=== PATIENT | female | born 1985 | race African-American/Black ===

== ENCOUNTER 2016-12-04 08:50 | Inpatient (IN) | payer OTHER, MEDICAID ==
[~2016-12-04] VITALS: Ht 160 cm; Wt 129.0 kg
[2016-12-04] VITALS (7 sets, daily range): BP systolic 102–139; BP diastolic 58–81; PULSE 95–104; RESP 18–20; TEMP 97.9–98.2; O2SAT 96–100
[~2016-12-04 08:50] MED LIST: AMLO5 PO; HYDR-3533 PO; VENTAER INH; ZITH250T PO; ZYRT10TA12 PO
[2016-12-04] MEDS ORDERED: SODIUM CHLOR 0.9% 1000 ML INJ 1,000 ML IV ONE ×2 (09:45→11:15)
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
[2016-12-04 09:54] LABS: AUTOMATED NEUTROPHIL # 12.6 TH/MM3 (1.8-7.7); BASOPHIL # 0.1 TH/MM3 (0-0.2); BASOPHIL % 0.3 % (0.0-2.0); EOSINOPHIL # 0.1 TH/MM3 (0-0.4); EOSINOPHIL % 0.7 % (0.0-4.0); HEMATOCRIT 37.7 % (35.0-46.0); LYMPH % 27.3 % (9.0-44.0); LYMPHOCYTE # 5.2 TH/MM3 (1.0-4.8); MEAN CELL VOLUME 81.3 FL (80.0-100.0); MEAN CORPUSCULAR HEMOGLOBIN 26.7 PG (27.0-34.0); MEAN CORPUSCULAR HGB CONC 32.8 % (32.0-36.0); MONO % 5.2 % (0.0-8.0); NEUT % 66.5 % (16.0-70.0); PLATELET COUNT 280 TH/MM3 (150-450); RED BLOOD COUNT 4.63 MIL/MM3 (4.00-5.30); RED CELL DISTRIBUTION WIDTH 15.5 % (11.6-17.2); WHITE BLOOD COUNT 18.9 TH/MM3 (4.0-11.0)
[2016-12-04 09:59] LABS: HEMO FLAGS AUTO DIFF
[2016-12-04 10:03] LABS: APTT (PATIENT) 21.7 SEC (24.3-30.1); PROTHROMBIN TIME - PATIENT 10.5 SEC (9.8-11.6)
[2016-12-04] MEDS ORDERED: IOHEXOL 350 MG/ML 10 ML VIAL (for RAD DIAG) IV ONE (10:14)
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
[2016-12-04 10:17] LABS: BICARBONATE 25.5 MEQ/L (21.0-32.0)
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
[2016-12-04 10:26] LABS: POTASSIUM 2.9 MEQ/L (3.5-5.1)
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
[2016-12-04 11:09] LABS: BANDS 5 % (0-6); BASOPHILS 1 % (0-2); EOSINOPHILS 1 % (0-4); NEUTROPHIL # MANUAL DIFF 12.3 TH/MM3 (1.8-7.7); POLYS (SEG NEUTROPHILS) 60 % (16-70); SCAN/DIFF FINAL DIFF MANUAL; WBC DIFF SAMPLE 100
[2016-12-04 11:10] LABS: PLATELET ESTIMATE SMEAR NORMAL (NORMAL); PLATELET MORPHOLOGY NORMAL (NORMAL)
[2016-12-04] MEDS ORDERED: MORPHINE SULFATE 4 MG/ML INJ IV PUSH ONE (11:15)
[2016-12-04] MEDS ORDERED: ONDANSETRON HCL 4 MG/2 ML VIAL IV ONE (11:15)
[2016-12-04] MEDS: POTASSIUM CHLOR 20 MEQ PREMIX 100 ML IV SCH ×2 (12:59→15:48)
[2016-12-04] MEDS ORDERED: ONDANSETRON HCL 4 MG/2 ML VIAL IV PRN ×2 (13:30→13:45)
[2016-12-04] MEDS ORDERED: SODIUM CHLORIDE 0.9% FLUSH 5 ML FLUSH IVF PRN ×2 (13:30→13:45)
[2016-12-04] MEDS ORDERED: ACETAMINOPHEN 325 MG TAB PO PRN (13:30)
[2016-12-04] MEDS ORDERED: ENALAPRILAT 1.25 MG/ML VIAL IV PRN (13:30)
[2016-12-04] MEDS: SODIUM CHLOR 0.9% 1000 ML INJ 1,000 ML IV SCH ×4 (13:39→21:44)
[2016-12-04] MEDS ORDERED: NALOXONE HCL 0.4 MG/ML AMP IV PRN (13:45)
[2016-12-04] MEDS ORDERED: Post-op Orders (for Pharmacy) MISC XX ONE (13:45)
[2016-12-04] MEDS: PANTOPRAZOLE SOD 40 MG DELAYED RELEASE TAB PO SCH (14:00)
[2016-12-04] MEDS ORDERED: PANTOPRAZOLE SODIUM 40 MG VIAL IVP SCH (14:00)
[2016-12-04] MEDS: MORPHINE SULFATE 4 MG/ML INJ IV PRN ×2 (17:57→22:13)
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
[2016-12-04] MEDS ORDERED: DOCUSATE SODIUM 100 MG CAP PO SCH (21:00)
[2016-12-04] MEDS: MAGNESIUM HYDROXIDE SUSP 30 ML CUP PO SCH (21:44)
[2016-12-04] MEDS: SODIUM CHLORIDE 0.9% FLUSH 5 ML FLUSH IVF SCH (21:44)
[2016-12-04] MEDS: DOCUSATE SODIUM 100 MG CAP PO SCH (21:44)
[2016-12-05 00:05] VITALS: BP 110/79; PULSE 106; RESP 18; TEMP 98.5; O2SAT 99
[2016-12-05] MEDS ORDERED: INSULIN HUMAN REGULAR 1,000 UNITS/10 ML VIAL SQ PRN (00:15)
[2016-12-05 04:06] VITALS: BP 102/73; PULSE 95; RESP 19; TEMP 98.1; O2SAT 99
--- NOTE | 2016-12-05 07:11 | RADRPT ---
EXAM DATE/TIME: 12/05/2016 06:32 [facility] COMPARISON: CT THORAX W CONTRAST, December 04, 2016, 10:14. CHEST SINGLE AP, December 04, 2016, 10:11. INDICATIONS : Hemopneumothorax. MEDICAL HISTORY : Gastroesophageal reflux disease. Hypertension SURGICAL HISTORY : Tubal ligation. ENCOUNTER: Initial ACUITY: 2 days PAIN SCORE: 2/10 LOCATION: Bilateral chest FINDINGS: A single view of the chest demonstrates a mild infiltrate in the right lower lung. There is elevation of the right hemidiaphragm which is stable. The left lung is grossly clear. The heart size is stable . There are no pleural effusions. The bony structures are stable.. CONCLUSION: Mild right lower lung infiltrate. Trevin Michaud MD on December 05, 2016 at 7:07 Board Certified Radiologist. This report was verified electronically.
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
[2016-12-05] MEDS ORDERED: HYDR-3288 PO (07:18)
[2016-12-05] MEDS ORDERED: PLATMIS3 (07:19)
[2016-12-05] MEDS ORDERED: VANCOMYCIN HCL 1000 MG VIAL ONE (07:21)
[2016-12-05] MEDS ORDERED: GENTAMICIN SULFATE 80 MG/2 ML VIAL ONE (07:21)
[2016-12-05] MEDS ORDERED: BUPIVACAINE/EPINEPHRINE 0.25% PF 30 ML VIAL ONE (07:21)
[2016-12-05] MEDS ORDERED: SODIUM CHLOR 0.9% 250 ML INJ 250 ML ONE (07:22)
[2016-12-05] MEDS: SODIUM CHLORIDE 0.9% FLUSH 5 ML FLUSH IVF SCH ×2 (07:39→19:46)
[2016-12-05] MEDS: MORPHINE SULFATE 4 MG/ML INJ IV PRN (07:39)
[2016-12-05] MEDS: DOCUSATE SODIUM 100 MG CAP PO SCH ×2 (07:44→19:46)
[2016-12-05] MEDS: amLODIPine BESYLATE 5 MG TAB PO SCH (07:44)
[2016-12-05 08:00] VITALS: BP 124/72; PULSE 96; RESP 18; TEMP 97.1; O2SAT 98
[2016-12-05 08:10] LABS: PROTHROMBIN TIME - PATIENT 10.8 SEC (9.8-11.6)
[2016-12-05 08:19] LABS: AUTOMATED NEUTROPHIL # 6.3 TH/MM3 (1.8-7.7); BASOPHIL % 0.4 % (0.0-2.0); EOSINOPHIL # 0.1 TH/MM3 (0-0.4); EOSINOPHIL % 0.5 % (0.0-4.0); HEMATOCRIT 31.1 % (35.0-46.0); HEMO FLAGS DIFF FINAL; LYMPH % 25.8 % (9.0-44.0); LYMPHOCYTE # 2.6 TH/MM3 (1.0-4.8); MEAN CELL VOLUME 81.8 FL (80.0-100.0); MEAN CORPUSCULAR HEMOGLOBIN 26.7 PG (27.0-34.0); MEAN CORPUSCULAR HGB CONC 32.6 % (32.0-36.0); MONO % 10.6 % (0.0-8.0); NEUT % 62.7 % (16.0-70.0); PLATELET COUNT 195 TH/MM3 (150-450); RED BLOOD COUNT 3.81 MIL/MM3 (4.00-5.30); RED CELL DISTRIBUTION WIDTH 15.4 % (11.6-17.2); WHITE BLOOD COUNT 10.1 TH/MM3 (4.0-11.0)
[2016-12-05 08:21] LABS: ALT (GPT) 75 U/L (10-53); ANION GAP 9 MEQ/L (5-15); AST (GOT) 94 U/L (15-37); BICARBONATE 23.7 MEQ/L (21.0-32.0); BLOOD UREA NITROGEN 6 MG/DL (7-18); CHLORIDE 108 MEQ/L (98-107); GLOMERULAR FILTRATION RATE 161 ML/MIN (>89); POTASSIUM 3.6 MEQ/L (3.5-5.1); SODIUM (NA) 141 MEQ/L (136-145)
[2016-12-05 08:24] LABS: ALKALINE PHOSPHATASE 48 U/L (45-117); TOTAL BILIRUBIN ADULT 0.4 MG/DL (0.2-1.0)
[2016-12-05] MEDS ORDERED: MIDAZOLAM HCL 2 MG/2 ML VIAL ONE (09:06)
[2016-12-05] MEDS ORDERED: ACETAMINOPHEN 1000 MG/100 ML VIAL IV ONE (09:06)
[2016-12-05] MEDS ORDERED: fentaNYL CITRATE 250 MCG/5 ML AMP ONE (09:06)
[2016-12-05] MEDS ORDERED: LACTATED RINGER'S 1000 ML IV SCH (09:30)
[2016-12-05] MEDS ORDERED: SODIUM CHLORID 0.9% 500 ML IV SCH (09:30)
[2016-12-05] MEDS ORDERED: ceFAZolin INJ 1,000 MG VIAL ONE (09:59)
[2016-12-05] MEDS ORDERED: INFLUENZA VIRUS VACCINE (QUADRIVALENT) 0.5 ML SYR IM ONE (10:00)
--- NOTE | 2016-12-05 10:15 | PD.OP ---
cc: Lambert Tay MD Operative Report Date of Surgery: Dec 05, 2016 Preoperative Diagnosis: Displaced right distal radius fracture, right pubic rami fractures Postoperative Diagnosis: Procedure: Open reduction internal fixation right distal radius Anesthesia: Gen. Surgeon: Lambert Tay Sports Doctor(s): JF Avelar PA-C The surgical procedure was assisted by my physician administrative assistant. My P.A. presence was necessary throughout this case for the manipulation and positioning of the surgical extremity. My P.A. was assisting me throughout the duration of this procedure. The skill set of a physician administrative assistant was medically necessary to complete this procedure. During the surgical case the retail service technician was working at the back table and the physician administrative assistant was directly assisting me. Operation and Findings: Patient was seen and evaluated preoperatively and found to have a displaced distal radius fracture. Informed consent was obtained after detailed discussion of risk and benefits including bleeding, infection, injury to arteries, nerves, and blood vessels, weakness and numbness of hand, and tendon rupture. Informed consent was obtained. Patient received IV antibiotics prior to incision. Timeout procedure was performed. Operative extremity was prepped with alcohol followed by Hibiclens and draped usual sterile fashion. A standard volar approach to the distal radius was utilized. A 3 inch incision was made over the FCR tendon. Tendon sheath was opened. Pronator quadratus was elevated up. The fracture site was now visualized. The fracture did have intra-articular extension. Traction was applied. The articular surface was reduced. Fracture fragments were manipulated to achieve excellent reduction. K wires were used to hold provisional fixation. Fluoroscopy confirmed appropriate alignment of fracture. A Synthes 2 column variable angle distal radius plate was selected. Plate was provisionally fixed to bone with K wires. 2.7 and 2.4 cortical screws were used to compress plate to bone. Fluoroscopy confirmed appropriate alignment of fracture with well-placed hardware. Multiple 2.4 locking screws were now placed distally. Screws were predrilled and measured for appropriate length. 2 additional screws were placed into the shaft. K wires were removed. Final fluoroscopy revealed excellent of fracture with well-placed hardware. The wound was thoroughly irrigated with sterile saline. Subcutaneous tissue was closed with 3-0 Vicryl and skin was closed with 3-0 nylon. Sterile dressings were applied with Xeroform, 4 x 4, soft roll , and a well padded volar splint. Patient was awakened and transferred to recovery room in stable condition Lambert Tay MD Dec 05, 2016 10:15
[2016-12-05] MEDS ORDERED: PROPOFOL 200 MG/20 ML AMP IV ONE (10:25)
[2016-12-05] MEDS ORDERED: NEOSTIGMINE 3 MG/3 ML SYR IV ONE (10:25)
[2016-12-05] MEDS ORDERED: ONDANSETRON HCL 4 MG/2 ML VIAL IV PUSH ONE (10:25)
[2016-12-05] MEDS ORDERED: LACTATED RINGER'S 1000 ML INJ 1,000 ML IV ONE (10:25)
[2016-12-05] MEDS ORDERED: *morphine SULFATE 8 MG/ML PERIprocedure ONLY ONE ×2 (10:49→11:37)
[2016-12-05 12:00] VITALS: BP 117/73; PULSE 87; RESP 18; TEMP 97.2; O2SAT 100
[2016-12-05] MEDS ORDERED: LACTULOSE SYRUP 20 GM/30 ML CUP PO ONE (13:15)
[2016-12-05] MEDS: MORPHINE SULFATE 4 MG/ML INJ IV PUSH PRN ×4 (13:15→23:34)
[2016-12-05] MEDS: PANTOPRAZOLE SOD 40 MG DELAYED RELEASE TAB PO SCH (13:15)
--- NOTE | 2016-12-05 14:00 | RADRPT ---
EXAM DATE/TIME: 12/05/2016 10:00 [facility] COMPARISON: No previous studies available for comparison. INDICATIONS : Right wrist fracture repair. OR. MEDICAL HISTORY : Gastroesophageal reflux disease. Hypertension SURGICAL HISTORY : Tubal ligation. ENCOUNTER: Initial ACUITY: 1 day PAIN SCORE: Non-responsive. LOCATION: Right wrist CONCLUSION: Fluoroscopic images during placement of compression plate along the distal radius which is near anato brian alignment. Pop Kirkland MD on December 05, 2016 at 13:58 Board Certified Radiologist. This report was verified electronically.
[2016-12-05] MEDS ORDERED: ZYRT10CA PO (14:54)
[2016-12-05] MEDS ORDERED: AMLO5 PO (14:54)
[2016-12-05 15:58] VITALS: BP 110/70; PULSE 87; RESP 16; TEMP 97.6; O2SAT 98
--- NOTE | 2016-12-05 16:28 | HHI.PR ---
Subjective Subjective Notes S/P ORIF RIGHT radius Pain controlled. Objective Vitals/I&O Vital Signs Date Time Temp Pulse Resp B/P Pulse Ox O2 Delivery O2 Flow Rate FiO2 12/05/16 15:58 97.6 87 16 110/70 98 12/05/16 11:48 Nasal Cannula 2.00 Labs Laboratory Tests Test 12/05/16 07:38 White Blood Count 10.1 Red Blood Count 3.81 Hemoglobin 10.1 Hematocrit 31.1 Mean Corpuscular Volume 81.8 Mean Corpuscular Hemoglobin 26.7 Mean Corpuscular Hemoglobin 32.6 Concent Red Cell Distribution Width 15.4 Platelet Count 195 Mean Platelet Volume 9.5 Neutrophils (%) (Auto) 62.7 Lymphocytes (%) (Auto) 25.8 Monocytes (%) (Auto) 10.6 Eosinophils (%) (Auto) 0.5 Basophils (%) (Auto) 0.4 Neutrophils # (Auto) 6.3 Lymphocytes # (Auto) 2.6 Monocytes # (Auto) 1.1 Eosinophils # (Auto) 0.1 Basophils # (Auto) 0.0 CBC Comment DIFF FINAL Differential Comment Prothrombin Time 10.8 Prothromb Time International 1.0 Ratio Sodium Level 141 Potassium Level 3.6 Chloride Level 108 Carbon Dioxide Level 23.7 Anion Gap 9 Blood Urea Nitrogen 6 Creatinine 0.53 Estimat Glomerular Filtration 161 Rate Random Glucose 113 Calcium Level 7.8 Total Bilirubin 0.4 Aspartate Amino Transf 94 (AST/SGOT) Alanine Aminotransferase 75 (ALT/SGPT) Alkaline Phosphatase 48 Total Protein 6.3 Albumin 2.8 Radiology Last Impressions Wrist X-Ray 12/05/16 0000 Signed Impressions: Service Date/Time: Monday, December 05, 2016 10:00 - CONCLUSION: Fluoroscopic images during placement of compression plate along the distal radius which is near anatomic alignment. Pop Kirkland MD Chest X-Ray 12/05/16 0000 Signed Impressions: Service Date/Time: Monday, December 05, 2016 06:32 - CONCLUSION: Mild right lower lung infiltrate. Trevin Michaud MD Pelvis X-Ray 12/04/16 0000 Signed Impressions: Service Date/Time: Sunday, December 04, 2016 10:09 - CONCLUSION: Displaced fracture through the superior and inferior pubic rami on the right. Nito Abbott MD Lumbar Spine CT 12/04/16 Signed Impressions: Service Date/Time: Sunday, December 04, 2016 10:12 - CONCLUSION: 1. No acute fracture. 2. Mild, symmetric sclerosis in the SI joints characteristic of minimal sacroiliitis. Nito Abbott MD Head CT 12/04/16 Signed Impressions: Service Date/Time: Sunday, December 04, 2016 10:07 - CONCLUSION: Negative trauma study. Rubén Burdick MD Chest CT 12/04/16 Signed Impressions: Service Date/Time: Sunday, December 04, 2016 10:14 - CONCLUSION: 1. Minimal anterior right basilar pneumothorax. 2. Alveolar infiltrates in the right lung which could indicate aspiration pneumonia or lung contusion. 3. Small right pleural effusion. 4. Low-attenuation lesion in the left lobe of the thyroid gland which is nonspecific. Outpatient ultrasound may be helpful for further evaluation. Rubén Burdick MD Cervical Spine CT 12/04/16 Signed Impressions: Service Date/Time: Sunday, December 04, 2016 10:08 - CONCLUSION: 1. No acute fracture or listhesis. 2. Well-corticated ossific fragment associated with the superior aspect of the right T1 transverse process is characteristic of a benign accessory ossification. 3. Straightening of the normal lordotic curvature. 4. Also noted is a 2 cm hypodense lesion in the left lobe of the thyroid. Outpatient ultrasound would be recommended for further characterization if clinically warranted. Nito Abbott MD Abdomen/Pelvis CT 12/04/16 Signed Impressions: Service Date/Time: Sunday, December 04, 2016 10:14 - CONCLUSION: 1. Fractures of the right superior and inferior pubic rami. 2. Fatty infiltration of the liver with no evidence of visceral injury. 3. Small right pleural effusion again noted with alveolar opacities at the right lung base and small anterior pneumothorax. Please see chest CT report for further details. Rubén Burdick MD Narrative Exam GENERAL: 31-year-old well-nourished, well developed female lying in bed. SKIN: Warm and dry. ENT: No nasal bleeding or discharge. Mucous membranes pink and moist. NECK: Trachea midline. No JVD. CARDIOVASCULAR: Regular rate and rhythm. RESPIRATORY: No accessory muscle use. Lungs clear and diminished to auscultation. Breath sounds equal bilaterally. GASTROINTESTINAL: Abdomen soft, non-tender, nondistended. + BS. MUSCULOSKELETAL: Extremities without cyanosis, or edema. Right arm anel wrap with sling in place. NEUROLOGICAL: Awake and alert. Normal speech. A/P Assessment and Plan INJURIES: RIGHT hemo-PTX RIGHT distal radius fx RIGHT superior and and inferior pubic rami fx PMHx: HTN 12/05: ORIF RIGHT radius Diet: Regular Pulm: IS, encourage patient use. Pain: Roxicodone, IV Morphine. Pain controlled. Activity: OOB. PT and OT ordered (WBAT RLE, NWB RUE). GI: Pepcid Bowel: Colace. MOM. Lactulose 1. No BM yet DVT: SCD's Discontinue Omer catheter. Plan of care discussed with patient and her mother at bedside. Plan to discharge when cleared by orthopedics. Awaiting PT eval to see if patient will have any needs at home. Leslee Estes Dec 05, 2016 16:28
[2016-12-05] MEDS: CETIRIZINE HCL 10 MG TAB PO SCH (17:12)
[2016-12-05] MEDS: FAMOTIDINE 20 MG TAB PO SCH (19:45)
[2016-12-05] MEDS: MAGNESIUM HYDROXIDE SUSP 30 ML CUP PO SCH (19:46)
[2016-12-05 19:50] VITALS: BP 124/93; PULSE 94; RESP 22; TEMP 99.2; O2SAT 99
[2016-12-06 00:20] VITALS: BP 131/75; PULSE 88; RESP 18; TEMP 97.9; O2SAT 99
[2016-12-06 03:35] VITALS: BP 100/63; PULSE 92; RESP 18; TEMP 97.6; O2SAT 96
[2016-12-06] MEDS: MORPHINE SULFATE 4 MG/ML INJ IV PUSH PRN ×2 (05:02→11:08)
--- NOTE | 2016-12-06 06:39 | PD.ORT.PN ---
Subjective Subjective Remarks POD 1 s/p ORIF right wrist s/p right pubic rami fxs doing well. pain controlled. out of bed to bedside commode Objective Vitals Vital Signs Date Time Temp Pulse Resp B/P Pulse Ox O2 Delivery O2 Flow Rate FiO2 12/06/16 03:35 97.6 92 18 100/63 96 12/06/16 00:20 97.9 88 18 131/75 99 12/05/16 19:50 99.2 94 22 124/93 99 12/05/16 15:58 97.6 87 16 110/70 98 12/05/16 12:00 97.2 87 18 117/73 100 12/05/16 11:48 Nasal Cannula 2.00 12/05/16 11:33 98.3 87 22 125/97 98 Nasal Cannula 2 12/05/16 11:30 87 22 125/97 98 Nasal Cannula 2 12/05/16 11:15 86 22 142/85 98 Nasal Cannula 2 12/05/16 11:00 86 22 137/92 98 Nasal Cannula 2 12/05/16 10:45 93 22 165/93 97 Nasal Cannula 2 12/05/16 10:31 98.4 97 22 155/89 96 Nasal Cannula 2 12/05/16 08:00 97.1 96 18 124/72 98 12/05/16 07:45 Room Air I/O 12/05/16 12/05/16 12/05/16 12/06/16 12/06/16 12/06/16 07:00 15:00 23:00 07:00 15:00 23:00 Intake Total 694 ml 1148 ml 720 ml Output Total 680 ml Balance 694 ml 468 ml 720 ml Intake Oral 0 ml 360 ml 720 ml IV Total 694 ml 188 ml Other 600 ml Output Urine Total 650 ml Estimated Blood Loss 30 ml # Voids 1 5 # Bowel Movements 0 0 0 # Sanitary Pads 1 Pads 2 Pads Result Diagram: 12/05/16 0738 12/05/16 0738 Other Results Laboratory Tests Test 12/05/16 07:38 Prothrombin Time 10.8 SEC (9.8-11.6) Prothromb Time International 1.0 RATIO Ratio Objective Remarks RUE: +short arm splint. NVI with good motion of fingers RLE: pain in pelvis. NVI distally Assessment & Plan Assessment and Plan 1) Right distal Radius fx s/p ORIF - POD 1 -NWB -maintain splint -ok to use platform walker -ortho cleared for DC home 2) Right Sup/Inf Rami Fxs -WBAT -nonop Jesse Zuluaga Dec 06, 2016 06:39
[2016-12-06 07:01] LABS: HEMATOCRIT 32.1 % (35.0-46.0); MEAN CELL VOLUME 82.4 FL (80.0-100.0); MEAN CORPUSCULAR HEMOGLOBIN 26.4 PG (27.0-34.0); MEAN CORPUSCULAR HGB CONC 32.1 % (32.0-36.0); PLATELET COUNT 196 TH/MM3 (150-450); RED BLOOD COUNT 3.89 MIL/MM3 (4.00-5.30); RED CELL DISTRIBUTION WIDTH 15.5 % (11.6-17.2); REVIEW FLAG FINAL; WHITE BLOOD COUNT 14.2 TH/MM3 (4.0-11.0)
[2016-12-06 07:31] LABS: BICARBONATE 26.5 MEQ/L (21.0-32.0); POTASSIUM 3.6 MEQ/L (3.5-5.1)
[2016-12-06] MEDS: FAMOTIDINE 20 MG TAB PO SCH ×2 (07:54→19:54)
[2016-12-06] MEDS: DOCUSATE SODIUM 100 MG CAP PO SCH ×2 (07:54→19:54)
[2016-12-06] MEDS: CETIRIZINE HCL 10 MG TAB PO SCH (07:54)
[2016-12-06] MEDS: amLODIPine BESYLATE 5 MG TAB PO SCH (07:58)
[2016-12-06] MEDS: SODIUM CHLORIDE 0.9% FLUSH 5 ML FLUSH IVF SCH ×2 (07:59→19:54)
[2016-12-06 08:00] VITALS: BP_SYST 107; BP_SYST 96; BP_DIAS 54; BP_DIAS 56; PULSE 101; PULSE 53; RESP 18; RESP 19; TEMP 98; TEMP 98.2; O2SAT 94; O2SAT 97
[2016-12-06] MEDS ORDERED: INFLUENZA VIRUS VACCINE (QUADRIVALENT) 0.5 ML SYR IM ONE (10:00)
[2016-12-06 11:36] VITALS: BP 132/82; PULSE 93; RESP 18; TEMP 96.2; O2SAT 99
--- NOTE | 2016-12-06 12:17 | HHI.FF ---
Face to Face Verification Diagnosis: (1) Pelvic fracture (2) Fracture of right wrist Physical Therapy Order: Evaluate and Treat, Improve ambulation, Strength and gait training Home Health Nursing Order: Nursing assessment with vital signs I have seen patient Denilson Nelson on 12/06/16. My clinical findings support the need for the requested home health care services because: Ltd mobility - disease progression High risk of falls I certify that my clinical findings support that this patient is homebound because: Unsteady gait/balance Leslee Estes Dec 06, 2016 12:17
[2016-12-06] MEDS ORDERED: PERC5TAB12 PO (14:37)
[2016-12-06 16:00] VITALS: BP 124/69; PULSE 113; RESP 18; TEMP 98.1; O2SAT 98
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
[2016-12-06] MEDS: MAGNESIUM HYDROXIDE SUSP 30 ML CUP PO SCH (19:54)
[2016-12-06 20:20] VITALS: BP 137/74; PULSE 106; RESP 17; TEMP 97.6; O2SAT 100
[2016-12-07] VITALS: BP 118/71; PULSE 104; RESP 18; TEMP 99.5; O2SAT 95
--- NOTE | 2016-12-07 06:44 | PD.ORT.PN ---
Subjective Subjective Remarks Pain controlled but having difficulty ambulating due to pelvic fracture Objective Vitals Vital Signs Date Time Temp Pulse Resp B/P Pulse Ox O2 Delivery O2 Flow Rate FiO2 12/07/16 00:00 99.5 104 18 118/71 95 12/06/16 20:20 97.6 106 17 137/74 100 12/06/16 16:00 98.1 113 18 124/69 98 12/06/16 11:36 96.2 93 18 132/82 99 12/06/16 08:00 98.2 101 19 96/54 97 12/06/16 07:50 Room Air I/O 12/06/16 12/06/16 12/06/16 12/07/16 12/07/16 12/07/16 07:00 15:00 23:00 07:00 15:00 23:00 Intake Total 600 ml 1320 ml 0 ml Balance 600 ml 1320 ml 0 ml Intake Oral 600 ml 1320 ml IV Total 0 ml # Voids 6 6 # Bowel Movements 1 4 Result Diagram: 12/06/16 0603 12/06/16 0603 Objective Remarks RUE: +short arm splint. NVI with good motion of fingers RLE: pain in pelvis. NVI distally Assessment & Plan Assessment and Plan 1) Right distal Radius fx s/p ORIF - POD 2 -NWB -maintain splint -ok to use platform walk 2) Right Sup/Inf Rami Fxs -WBAT -nonop Lovenox Plan for discharge to rehabilitation versus home due to difficulty ambulating YOLIE CRENSHAW PA-C Dec 07, 2016 06:44
[2016-12-07] MEDS: FAMOTIDINE 20 MG TAB PO SCH (07:53)
[2016-12-07] MEDS: DOCUSATE SODIUM 100 MG CAP PO SCH (07:53)
[2016-12-07] MEDS: SODIUM CHLORIDE 0.9% FLUSH 5 ML FLUSH IVF SCH (07:54)
[2016-12-07] MEDS: amLODIPine BESYLATE 5 MG TAB PO SCH (07:54)
[2016-12-07] MEDS: CETIRIZINE HCL 10 MG TAB PO SCH (07:54)
[2016-12-07 08:00] VITALS: BP 127/80; PULSE 86; RESP 18; TEMP 97.5; O2SAT 94
[2016-12-07] MEDS ORDERED: MILKSUS PO (09:18)
[2016-12-07] MEDS ORDERED: DOCU1CAP39 PO (09:18)
[2016-12-07 11:23] VITALS: O2SAT 94
[2016-12-07 12:00] VITALS: BP 118/60; PULSE 91; RESP 19; TEMP 98.4; O2SAT 97
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
[2016-12-07 16:00] VITALS: BP 120/75; PULSE 85; RESP 18; TEMP 98.2; O2SAT 97
== END 2016-12-07 17:46 | disposition home health service (06) | DRG 959 ==
LOC: NEPE 08:50 → NEDA 11:10 → NEDH 15:22 → N06B 21:08
PROVIDERS: ADMIT Surgery; ATTEND Surgery
PROC: 0PSH04Z Reposition Right Radius with Internal Fixation Device, Open Approach (ICD-10-PCS; principal; 2016-12-05 09:10)
DX: S52.571A Other intraarticular fracture of lower end of right radius, initial encounter for closed fracture (principal); S27.2XXA Traumatic hemopneumothorax, initial encounter; S32.591A Other specified fracture of right pubis, initial encounter for closed fracture; S06.9X9A Unspecified intracranial injury with loss of consciousness of unspecified duration, initial encounter; I10 Essential (primary) hypertension; V49.59XA Passenger injured in collision with other motor vehicles in traffic accident, initial encounter; Y92.410 Unspecified street and highway as the place of occurrence of the external cause; Y93.89 Activity, other specified; R10.32 Left lower quadrant pain; E66.9 Obesity, unspecified; K21.9 Gastro-esophageal reflux disease without esophagitis; E87.6 Hypokalemia; R26.2 Difficulty in walking, not elsewhere classified; Z23 Encounter for immunization
CPT/HCPCS: 70450; 71010; 71260; 72125; 72131; 72170; 73100; 73110; 74177; 76000; 80048; 80053; 84703; 85007; 85025; 85027; 85610; 85730; 90471; 90686; 94150; C1713; C9113; G0008; J0131; J0690; J1580; J2250; J2270; J2405; J2710; J3010; J3370; J3480; J7030; J7050; J7120; Q2038; Q9967

== ENCOUNTER → 2017-01-25 | Outpatient (CLI) | payer MEDICAID ==
[~2017-01-25] MED LIST changes: +DOCU1CAP39 PO; -HYDR-3533 PO; +MILKSUS PO; +PERC5TAB12 PO; +PLATMIS3; -ZITH250T PO; +ZYRT10CA PO
== END ==
LOC: HORT 09:38
PROVIDERS: ATTEND Physician Assistant
DX: Z47.89 Encounter for other orthopedic aftercare (principal)
CPT/HCPCS: L3908